=== PATIENT | female | born 1935 | race Caucasian/White ===

== ENCOUNTER 2018-03-23 11:59 | Emergency (ER) | payer MEDICARE, OTHER ==
[~2018-03-23] VITALS: Ht 162.6 cm; Wt 54.4 kg
[2018-03-23 12:09] VITALS: BP 131/65
[2018-03-23] MEDS ORDERED: SYNTHROID75 MCG PO (12:14)
[2018-03-23] MEDS ORDERED: CYMBALTA30 MG PO (12:14)
[2018-03-23] MEDS ORDERED: FLONASE 0.05%50 MCG NASAL (12:15)
[2018-03-23] MEDS ORDERED: TRIAMCINOLONE A80 G2 TOP (12:33)
== END 2018-03-23 12:45 | disposition home or self-care (01) ==
LOC: M.ERS 11:59
DX: L25.9 Unspecified contact dermatitis, unspecified cause (principal)

== ENCOUNTER 2018-07-02 18:03 | Inpatient (IN) | payer MEDICARE, OTHER ==
[~2018-07-02] VITALS: Ht 162.6 cm; Wt 58.5 kg
[~2018-07-02 18:03] MED LIST: CYMBALTA30 MG PO; FLONASE 0.05%50 MCG NASAL; SYNTHROID75 MCG PO; TRIAMCINOLONE A80 G2 TOP
[2018-07-02 18:16] VITALS: BP 153/104
[2018-07-02] MEDS ORDERED: CYMBALTA30 MG PO (18:25)
[2018-07-02] MEDS ORDERED: ASPIR 8181 MG PO (18:25)
[2018-07-02] MEDS ORDERED: UNICOMPLEX M TA1 TA1 PO (18:25)
[2018-07-02] MEDS ORDERED: BIOTIN1 MG PO (18:26)
[2018-07-02] MEDS ORDERED: VITAMINC500 PO (18:26)
[2018-07-02] MEDS ORDERED: VITAMIN D1000 UNI1 PO (18:26)
[2018-07-02 18:32] LABS: ABSOLUTE BASOPHILS 0.1 thou/uL (0.0-0.2); ABSOLUTE EOSINOPHILS 0.3 thou/uL (0.0-0.7); ABSOLUTE LYMPHOCYTES 2.8 thou/uL (0.8-5.3); ABSOLUTE MONOCYTES 0.8 thou/uL (0.0-1.2); ABSOLUTE NEUTROPHILS 5.4 thou/uL (1.6-8.1); BASOPHILS 1.2 %; EOSINOPHILS 3.1 %; HEMATOCRIT 42.5 % (37.0-47.0); HEMOGLOBIN 13.9 gm/dL (12.0-15.0); LYMPHOCYTES 29.7 %; MCH 28.3 pg (26.0-34.0); MCHC 32.8 g/dL (28.0-37.0); MCV 86.1 fL (80.0-100.0); MONOCYTES 8.6 %; MPV 8.8 fl. (7.2-11.1); NUCLEATED RBCS 0 /100WBC; PLATELET COUNT* 271 thou/uL (150-400); POLYS 57.4 %; RBC 4.93 mil/uL (4.20-5.00); RDW-CV 13.9 % (10.5-14.5); WBC 9.3 thou/uL (4.0-11.0)
[2018-07-02 18:44] LABS: URINE BILIRUBIN NEGATIVE (Negative); URINE BLOOD 2+ (Negative); URINE CLARITY CLEAR; URINE COLOR YELLOW; URINE GLUCOSE-RANDOM NEGATIVE (Negative); URINE KETONES NEGATIVE (Negative); URINE LEUKOCYTES-REFLEX 1+ (Negative); URINE NITRITE-REFLEX POSITIVE (Negative); URINE PROTEIN TRACE (Negative); URINE SPECIFIC GRAVITY 1.025 (1.005-1.030); URINE UROBILINOGEN 0.2 E.U./dl (0.2-1.0)
[2018-07-02 18:45] LABS: BACTERIA-REFLEX >30 Many /HPF (None Seen); CRYSTALS None Seen /LPF (None Seen); MUCUS 0-3 Light strn/LPF (None Seen); SQUAMOUS 0-3 Few /LPF (0-3)
[2018-07-02 18:46] LABS: HYALINE CASTS 0-3 Few /LPF (None Seen); URINE RBC 0-2 Rare /HPF (0-2); URINE WBC-REFLEX >25 Many /HPF (0-5)
[2018-07-02 18:48] LABS: YEAST-REFLEX Present (None Seen)
[2018-07-02 18:49] LABS: ANION GAP 7 mmol/L (7-16); BUN 21 mg/dL (7-18); CALCIUM 9.4 mg/dL (8.5-10.1); CHLORIDE 101 mmol/L (98-107); CO2 27 mmol/L (21-32); CREATININE 0.8 mg/dL (0.6-1.3); GLUCOSE 111 mg/dL (70-99); POTASSIUM 4.2 mmol/L (3.5-5.1); SODIUM 135 mmol/L (136-145)
[2018-07-02 18:51] LABS: PROTIME 10.3 Seconds (9.20-11.50)
[2018-07-02 18:59] LABS: ALBUMIN 4.2 g/dL (3.4-5.0); ALKALINE PHOSPHATASE 56 U/L (46-116); NT-PRO BRAIN NAT PEPTIDE 1135 pg/mL (<300); SGOT 30 U/L (15-37); SGPT 29 U/L (30-65); TOTAL BILIRUBIN 0.3 mg/dL (<0.1-1.0); TOTAL PROTEIN 7.3 g/dL (6.4-8.2); TROPONIN-I LEVEL <0.06 ng/mL (<0.06)
[2018-07-02 20:00] VITALS: BP 125/63
[2018-07-02 20:17] VITALS: BP 132/70
[2018-07-03] VITALS: BP 94/47
[2018-07-03 04:00] VITALS: BP 92/45
[2018-07-03 07:56] VITALS: BP 103/58
--- NOTE | 2018-07-03 11:41 | 2DMMODE ---
[place] [address] 2 D/M-MODE ECHOCARDIOGRAM Name: GEORGETTE ORTEGA Room: [address] IN [facility]#: [id number] Admission: 07/02/18 Attend Phys: Ha Lozoya, Discharge: Date of : 39 Date of Service: 07/03/18 1141 Report #: [id number] THIS REPORT FOR: //name// APPROVED REPORT Study performed: 07/03/2018 09:51:29 EXAM: Comprehensive 2D, Doppler, and color-flow Echocardiogram Patient Location: In-Patient Room #: [facility] Status: routine BSA: 1.57 HR: 70 bpm BP: 103/58 mmHg Rhythm: NSR Other Information Study Quality: Good Indications Atrial Fibrillation 2D Dimensions IVSd: 7.10 (7-11mm) LVOT Diam: 17.83 (18-24mm) LVDd: 38.51 mm PWd: 6.80 (7-11mm) Ascending Ao: 33.45 (22-36mm) LVDs: 24.64 (25-40mm) Aortic Root: 30.69 mm Volumes Left Atrial Volume (Systole) LA ESV Index: 26.50 mL/m2 Aortic Valve AoV Peak Hood.: 1.39 m/s AO Peak Gr.: 7.77 mmHg LVOT Max P.10 mmHg AO Mean Gr.: 4.11 mmHg LVOT Mean P.60 mmHg LVOT Max V: 1.23 m/s AO V2 VTI: 27.93 cm LVOT Mean V: 0.72 m/s FEDERICO (VTI): 2.26 cm2 LVOT V1 VTI: 25.27 cm Mitral Valve E/A Ratio: 1.25 MV Decel. Time: 207.26 ms MV E Max Hood.: 0.97 m/[place] [address] 2 D/M-MODE ECHOCARDIOGRAM Name: GEORGETTE ORTEGA Room: [address] IN [facility].#: [id number] Admission: 07/02/18 Attend Phys: Ha Lozoya, Discharge: Date of : 39 Date of Service: 07/03/18 1141 Report #: [id number] MV PHT: 60.11 ms MVA (PHT): 3.66 cm2 TDI E/Lateral E': 8.82 E/Medial E': 9.70 Medial E' Hood.: 0.10 m/s Lateral E' Hood.: 0.11 m/s Pulmonary Valve PV Peak Hood.: 0.93 m/s PV Peak Gr.: 3.47 mmHg Tricuspid Valve RAP Estimate: 5.00 mmHg TR Peak Gr.: 22.95 mmHg RVSP: 28.00 mmHg PA Pressure: 28.00 mmHg Left Ventricle The left ventricle is normal size. There is normal LV segmental wall motion. There is normal left ventricular wall thickness. Left ventricular systolic function is normal. The left ventricular ejection fraction is within the normal range. LVEF is 60-65%. The left ventricular diastolic function is normal. Right Ventricle The right ventricle is normal size. The right ventricular systolic function is normal. Atria The left atrium size is normal. The right atrium size is normal. Aortic Valve The aortic valve is normal in structure. No aortic regurgitation is present. There is no aortic valvular stenosis. Mitral Valve The mitral valve is normal in structure. There is no mitral valve regurgitation noted. No evidence of mitral valve stenosis. Tricuspid Valve The tricuspid valve is normal in structure. Mild tricuspid regurgitation. No pulmonary hypertension. Pulmonic Valve The pulmonary valve is normal in structure. Mild [place] [address] 2 D/M-MODE ECHOCARDIOGRAM Name: GEORGETTE ORTEGA Room: [address] IN [facility]#: [id number] Admission: 07/02/18 Attend Phys: Ha Lozoya, Discharge: Date of : 39 Date of Service: 07/03/18 1141 Report #: [id number] Great Vessels The aortic root is normal in size. IVC is normal in size and collapses >50% with inspiration. Pericardium There is no pericardial effusion. <Conclusion> The left ventricle is normal size. There is normal left ventricular wall thickness. Left ventricular systolic function is normal. The left ventricular ejection fraction is within the normal range. LVEF is 60-65%. The left ventricular diastolic function is normal. The right ventricle is normal size. The left atrium size is normal. The aortic valve is normal in structure. The mitral valve is normal in structure. The tricuspid valve is normal in structure. Mild tricuspid regurgitation. No pulmonary hypertension. IVC is normal in size and collapses >50% with inspiration. There is no pericardial effusion. There is normal LV segmental wall motion. <ELECTRONICALLY SIGNED> By: Gutierrez Houston MD, FACC 07/03/18 1141 1141 1141 Gutierrez Houston MD, FACC /INF
[2018-07-03 11:46] VITALS: BP 132/65
--- NOTE | 2018-07-03 13:55 | EKG ---
[place] [address] ELECTROCARDIOGRAM REPORT Name: NA ORTEGAJARAD Gonzalo Room: [address] ADM IN .R.#: [id number] Admission: 07/02/18 Attend Phys: Ha Lozoya MD Discharge: Date of : 39 Report #: [id number] THIS REPORT FOR: //name// [facility] ED Test Date: 2018-07-02 Test Time: 18:20:13 Pat Name: GEORGETTE ORTEGA Department: Room: [facility] Gender: F Provider Network Mgr: Tiffanie CALHOUN : 1935 Requested By: Mendel Kay Order Number: [id number] MD: Gutierrez Houston Measurements Intervals [place] Rate: 133 P: CA: QRS: 69 QRSD: 74 T: 36 QT: 326 QTc: 485 Interpretive Statements Atrial fibrillation with rapid response Anteroseptal infarct, age indeterminate possible Baseline wander in lead(s) V2 No previous ECG available for comparison Electronically Signed On 07-03-2018 13:55:05 CDT by Gutierrez Houston [email or web address] <ELECTRONICALLY SIGNED> By: Gutierrez Houston MD, FACC 07/03/18 1355 [id number] Gutierrez Houston MD, [facility] /EPI
[2018-07-03 15:42] VITALS: BP 137/62
[2018-07-03 19:20] VITALS: BP 109/58
[2018-07-04] VITALS: BP 112/61
[2018-07-04 04:00] VITALS: BP 122/57
[2018-07-04 08:00] VITALS: BP 126/67
[2018-07-04 13:42] VITALS: BP 126/67
[2018-07-04 15:28] VITALS: BP 122/57
[2018-07-04] MEDS ORDERED: CEFDINIR300 MG PO (15:33)
[2018-07-04] MEDS ORDERED: CARDIZEM CD240 MG PO (15:35)
--- NOTE | 2018-07-04 15:52 | CARDNUC ---
[place] [address] CARDIAC NUCLEAR IMAGING REPORT Name: GEORGETTE ORTEGA Room: [address] IN [facility]#: [id number] Admission: 07/02/18 Attend Phys: Ha Lozoya, Discharge: Date of : 39 Date of Service: 07/04/18 1552 Report #: [id number] THIS REPORT FOR: //name// APPROVED REPORT Imaging Protocol: Rest Tc-99m/Stress Tc-99m 2 days Study performed: 07/03/2018 08:41:00 Indication: Chest pain, a fibe with rvr Patient Location: In-Patient Room #: 201 Stress Tech: Cony Byrd Stress Nurse: Luzma Scott RN NM Tech:SOURAV Lombardo Ht: 5 ft 4 in Wt: 119 lbs BSA: 1.57 m2 BMI: 20.42 Medical History Medical History: none Medications: diltiazem Allergies: codeine, hydrocodone Cardiac Risk Factors: age Previous Cardiac Procedures: none Resting Data Rest SPECT myocardial perfusion imaging was performed in supine position 30 minutes following the intravenous injection of 12.0 mCi of Tc-99m Sestamibi. Time of rest injection: 1500 Date: 07/03/2018 Time of rest imagin The images were gated to evaluate regional wall motion and calculate left ventricular ejection fraction. Administration Route: IV Pharmacologic Stress Pharmacologic stress test was performed by injecting Regadenoson 0.4 mg IV push over 10-15 seconds immediately followed by the intravenous injection of 34.0 mCi of Tc-99m Sestamibi. Time of stress injection: 1050 Date: 07/04/2018 Time of stress imagin Administration Route: IV Gated Stress SPECT was performed 40 minutes after stress injection. The images were gated to evaluate regional [place] [address] CARDIAC NUCLEAR IMAGING REPORT Name: GEORGETTE ORTEGA Room: [address]#: [id number] Admission: 07/02/18 Attend Phys: Ha Lozoya, Discharge: Date of : 39 Date of Service: 07/04/18 1552 Report #: [id number] left ventricular ejection fraction. Prone imaging was performed. Stress Test Details Stress Test: Pharmacologic stress testing performed using 0.4 mg of regadenoson per 5 mL given IV over 10 seconds. Reason for pharmacologic stress test: physical limitation. 60 mg caffeine given for nausea. HR Max Heart Rate (APMHR): 139 bpm Resting HR: 85 bpm Target HR (85% APMHR): 118 bpm Max HR Achieved: 103 bpm % of APMHR: 74 Recovery HR: 87 bpm BP Resting BP: 161/93 mmHg Recovery BP: 145/81 mmHg ECG Resting ECG: Sinus Rhythm, nonspecific ST-T abnormalities Stress ECG: Sinus Rhythm, nonspecific ST-T abnormalities ST Change: None Arrhythmia: None Recovery ECG: Sinus Rhythm, nonspecific ST-T abnormalities Recovery ST Change: None Recovery Arrhythmia: None Clinical Reason for Termination: Completed protocol Exercise duration: 0 min sec Exercise capacity: 1 METs The patient had no significant cardiac symptoms with Lexiscan infusion. Nurse Comments pt given iv caffeine for vomiting. unable to walk on treadmill dt generalized weakness Stress ECG Conclusion The baseline 12-lead EKG show sinus rhythm with T-wave inversion. There are no significant ST segment abnormalities. EKGs obtained during and post Lexiscan infusion show sinus rhythm with no significant ST or T wave changes when compared to baseline. There were [place] [address] CARDIAC NUCLEAR IMAGING REPORT Name: GEORGETTE ORTEGA Room: [address]#: [id number] Admission: 07/02/18 Attend Phys: Ha Lozoya, Discharge: Date of : 39 Date of Service: 07/04/18 1552 Report #: [id number] Study Quality Study: Good Artifact: No artifact Study Data At rest, the left ventricular ejection fraction was 76%.. Post stress, the left ventricular ejection was 76%.. TID = 1.07. Perfusion Normal left ventricular perfusion. Wall Motion Normal left ventricular wall motion. Nuclear Conclusion ECG Findings: negative for ischemia Clinical Findings: negative for ischemia Nuclear Findings: negative for ischemia Exercise Capacity: not assessed Left Ventricular Function: normal Risk Study: low Myocardial perfusion images show no defect to suggest infarct or ischemia. Left ventricular systolic function appears normal on gated studies. This is not a high risk study. <Conclusion> The baseline 12-lead EKG show sinus rhythm with T-wave inversion. There are no significant ST segment abnormalities. EKGs obtained during and post Lexiscan infusion show sinus rhythm with no significant ST or T wave changes when compared to baseline. There were no stress-induced arrhythmias. <ELECTRONICALLY SIGNED> By: Nito Calix MD, FACC 07/04/18 1552 155 155 Nito Calix MD, FACC /INF
== END 2018-07-04 17:15 | disposition home or self-care (01) | DRG 690 ==
LOC: M.ERS 18:03 → M.TBA-ER 18:49 → M.2W 18:49
PROVIDERS: Family Medicine; ADMIT Internal Medicine
DX: N39.0 Urinary tract infection, site not specified (principal); I47.1 Supraventricular tachycardia; I48.91 Unspecified atrial fibrillation; I49.9 Cardiac arrhythmia, unspecified; E03.9 Hypothyroidism, unspecified; Z82.49 Family history of ischemic heart disease and other diseases of the circulatory system; Z80.0 Family history of malignant neoplasm of digestive organs; Z88.6 Allergy status to analgesic agent; Z79.899 Other long term (current) drug therapy

== ENCOUNTER 2019-01-19 05:07 | Emergency (ER) | payer MEDICARE, OTHER ==
[~2019-01-19] VITALS: Ht 162.6 cm; Wt 54.4 kg
[~2019-01-19 05:07] MED LIST changes: +ASPIR 8181 MG PO; +BIOTIN1 MG PO; +CARDIZEM CD240 MG PO; +CEFDINIR300 MG PO; +UNICOMPLEX M TA1 TA1 PO; +VITAMIN D1000 UNI1 PO; +VITAMINC500 PO
[2019-01-19] MEDS ORDERED: TRAMADOL 50 MG50 MG PO (06:27)
[2019-01-19 07:20] VITALS: BP 123/80
== END 2019-01-19 07:20 | disposition home or self-care (01) ==
LOC: M.ERS 05:07
DX: S43.015A Anterior dislocation of left humerus, initial encounter (principal); E03.9 Hypothyroidism, unspecified; Z88.5 Allergy status to narcotic agent; W01.0XXA Fall on same level from slipping, tripping and stumbling without subsequent striking against object, initial encounter; Y93.89 Activity, other specified; Y92.89 Other specified places as the place of occurrence of the external cause; Y99.8 Other external cause status